=== PATIENT | female | born 1945 | race Caucasian/White ===

== ENCOUNTER 2021-09-13 08:45 | Day surgery (SDC) | payer MEDICARE ==
[~2021-09-13] VITALS: Ht 162.6 cm; Wt 71.8 kg
[2021-09-13] MEDS ORDERED: fentaNYL/PF 50MCG/1 ML 2ML syringe ONE (08:48)
[2021-09-13] MEDS ORDERED: LIDOcaine Viscous 15ml cup ONE (08:49)
[2021-09-13] MEDS ORDERED: MIDAZolam 1 MG/ML 5ML VIAL ONE (08:49)
[2021-09-13] MEDS ORDERED: diphenhydrAMINE 50 mg/ml inj ONE (08:49)
[2021-09-13 09:01] VITALS: BP 132/86
[2021-09-13] MEDS ORDERED: NO HOME MEDS (09:05)
[2021-09-13 10:50] VITALS: BP 114/49
[2021-09-13 10:59] VITALS: BP 130/93
[2021-09-13 11:09] VITALS: BP 133/87
[2021-09-13 11:19] VITALS: BP 124/73
== END 2021-09-13 11:35 | disposition home or self-care (01) ==
LOC: GI LAB 08:45
PROVIDERS: ATTEND Internal Medicine Gastroenterology
DX: Z12.11 Encounter for screening for malignant neoplasm of colon (principal); R13.10 Dysphagia, unspecified; K29.50 Unspecified chronic gastritis without bleeding; K20.80 Other esophagitis without bleeding; K44.9 Diaphragmatic hernia without obstruction or gangrene; K63.89 Other specified diseases of intestine; K57.30 Diverticulosis of large intestine without perforation or abscess without bleeding; Z72.89 Other problems related to lifestyle
CPT/HCPCS: 43239; 43450; 99153; G0121; G0500; J1200; J2250; J3010; J7040; Z7512; 43233; 45378; 88305; 99152; A4620